=== PATIENT | female | born 1975 | race Caucasian/White ===

== ENCOUNTER → 2019-05-18 | Outpatient (CLI) | payer MEDICAID, SELFPAY ==
--- NOTE | 2019-05-18 10:12 | VDLE_ITS ---
Reason For Study: Edema RIGHT LEFT GSV is normal. GSV is normal. CFV is compressible, spontaneous, phasic, CFV is compressible, spontaneous, phasic, competent and demonstrates normal competent, and demonstrates normal augmentation. augmentation. FV is compressible, spontaneous, phasic, FV is compressible, spontaneous, phasic, competent and demonstrates normal competent and demonstrates normal augmentation. augmentation. POP V is compressible, spontaneous, phasic, POP V is compressible, spontaneous, phasic, competent and demonstrates normal competent and demonstrates normal augmentation. augmentation. T/P Trunk is compressible. T/P Trunk is compressible. PTV is compressible. PTV is compressible. RT PerV is compressible. LT PerV is compressible. Procedure Exam performed in department. Technically difficult study due to pt body habitus. A preliminary report was called and/or faxed to [facility]. Interpretation Summary Deep veins of the lower extremities are bilaterally patent and compressible segmentally. There is no evidence of deep vein thrombosis on either side. Valvular competence appears intact within the proximal deep venous systems bilaterally. The greater saphenous veins appear bilaterally patent and compressible segmentally. Ordering Physician: Arthur Marino Referring Physician: Arthur Marino Performed By: Isa Dent RVT
== END | disposition home or self-care (01) ==
PROVIDERS: Family Provider Family Medicine; PCP Family Medicine; Referring Provider Family Medicine; Visit Provider Family Medicine
DX: R60.9 Edema, unspecified (principal)
CPT/HCPCS: 93970

== ENCOUNTER → 2021-05-18 09:21 | Outpatient (CLI) | payer MEDICAID, SELFPAY ==
[2021-05-18 09:28] VITALS: BP 153/104; PULSE 77; RESP 18; TEMP 36.1; O2SAT 100
[2021-05-18 09:33] VITALS: BP 105/68
[2021-05-18] MEDS: Penicillin G Benzathine 2.4 MU/4 ML Syringe IM (09:48)
== END ==
PROVIDERS: PCP Family Medicine
DX: A53.0 Latent syphilis, unspecified as early or late (principal)
CPT/HCPCS: 96372

== ENCOUNTER 2022-01-28 12:18 | Outpatient (CLI) | payer MEDICAID, SELFPAY ==
[2022-01-28 12:42] LABS: D-Dimer Quantitative (DVT/PE) 0.49 FEU/ug/m (0.27-0.49)
== END 2022-01-28 23:59 | disposition home or self-care (01) ==
LOC: LABSPEC 12:21
PROVIDERS: PCP Family Medicine; Referring Provider Family Medicine; Visit Provider Family Medicine
DX: R07.9 Chest pain, unspecified (principal)
CPT/HCPCS: 85379

== ENCOUNTER → 2022-03-10 | Outpatient (CLI) | payer MEDICAID, SELFPAY ==
--- NOTE | 2022-03-10 09:19 | US_ITS ---
STUDY: ABDOMINAL ULTRASOUND - RIGHT UPPER QUADRANT REASON FOR VISIT: Female, 46 years old ELEVATED LIVER ENZYMES TECHNIQUE: Ultrasound evaluation of the right upper quadrant was performed with real-time and static garcia-scale imaging. TECHNICAL QUALITY: Adequate. COMPARISON: None. FINDINGS: Liver: The liver is enlarged and measures 21.1 cm. There is increased echogenicity consistent with fatty infiltration. The bile ducts are within normal limits. There is hepatic color flow. The direction of portal flow is hepatopetal. There is no demonstrated mass lesion. Gallbladder: The patient is status post cholecystectomy. Common Bile Duct (C.B.D.): The common bile duct measures 5 mm. Pancreas: There is nonvisualization of the pancreas due to overlying bowel gas. Right Kidney: Normal size of the right kidney. The right kidney measures 10.7 cm x 5.3 cm x 5.8 cm. Normal renal cortex. The right cortex measures 1.9 cm. There is no demonstrated renal mass or cyst. There is no right hydronephrosis. US/Abdomen Limited IMPRESSION: Hepatomegaly and diffuse fatty infiltration of the liver. Electronically Signed: Yusuf Simental MD at 10:01 EDT ,
--- NOTE | 2022-03-10 09:19 | US_ITS ---
STUDY: ABDOMINAL ULTRASOUND - ELASTOGRAPHY REASON FOR VISIT: Female, 46 years old. Elevated liver enzymes. TECHNIQUE: Liver stiffness measurements were obtained on a [employer] RS 85 ultrasound machine using a CA 1-7 probe following the SRU guidelines. 3 measurements were obtained using a 2-D-SWE method. The IQR/M was 31% suggesting a limited data set to patient''s body habitus.. TECHNICAL QUALITY: Adequate. COMPARISON: None. FINDINGS: Liver: Fatty infiltration of the liver. Hepatomegaly. Median liver stiffness measured 5.8 kPa. US/Elastography Parenchyma/Organ IMPRESSION: Liver stiffness measures 5.8 kPa compatible with F2-F3 (Mild to moderate liver fibrosis) Metavir score. Electronically Signed: Yusuf Simental MD at 10:29 EDT ,
== END | disposition home or self-care (01) ==
LOC: US 09:18
PROVIDERS: PCP Family Medicine; Visit Provider Physician Assistant
DX: K76.0 Fatty (change of) liver, not elsewhere classified (principal); R74.8 Abnormal levels of other serum enzymes
CPT/HCPCS: 76705; 76981

== ENCOUNTER → 2024-04-09 | Outpatient (CLI) | payer MEDICAID, SELFPAY | END | disposition home or self-care (01) | PROVIDERS: PCP Family Medicine; Referring Provider Physician Assistant Medical; Visit Provider Physician Assistant Medical | DX: R55 Syncope and collapse (principal) | CPT/HCPCS: 95819 ==

== ENCOUNTER 2024-07-09 12:07 | Emergency (ER) | payer MEDICAID, SELFPAY ==
[2024-07-09 12:09] VITALS: BP 146/108; PULSE 102; RESP 18; TEMP 36.2; O2SAT 94
[2024-07-09 12:11] VITALS: BMI 45.6
[2024-07-09 14:07] VITALS: BP 103/86; PULSE 82; RESP 18; O2SAT 98
--- NOTE | 2024-07-09 14:12 | EX.ED.DYSGE1 ---
HPI History of Present Illness Chief Complaint: Nausea/Vomiting/Diarrhea Informant: patient Narrative Narrative: 48-year-old female presenting to the emergency room chief complaint of vomiting diarrhea. Patient states that on Tuesday she went to see her HIV doctor through [facility] in [place]. She states that they ran some blood work because she was having vomiting and diarrhea and that her sodium was very low and all my blood work is off. She has the blood work on her phone which shows a normal white count hemoglobin and platelet count. Her sodium is 132 but her blood sugars greater than 400 so it would correct into the normal range. Chloride is concomitantly low. Her potassium was within normal limits. Her urinalysis was contaminated and urine culture demonstrated 10,000-40,000 colony-forming units of mixed gram-positive's moderate squamous cells negative nitrates. She notes continued vomiting diarrhea lower abdominal pain on the right radiating to the flank. She denies dysuria. She chronically has elevated transaminases. Her bilirubin was elevated but less than 2. She states that her urine was fluorescent orange. She was told that her doctor wanted a CT scan of her abdomen pelvis but the wait time was 5 hours show she declined returned home. She states her last episode of vomiting and diarrhea was this morning. No reported fevers. [facility] Medical History HIV (human immunodeficiency virus infection) Morbid obesity with body mass index of 40.0-49.9 Anxiety and depression Asthma Hypertension Home Medications ?Medication ?Instructions ?Recorded ?Last Taken ?Type Fluticasone 220 Mcg [Flovent 220 2 puff inhalation TID 07/20/13 Unknown History Mcg] nitrofurantoin 100 mg PO Q12 #10 CAPSULES 07/09/24 Unknown Rx monohydrate/macrocrystals 100 mg capsule ondansetron 4 mg disintegrating 4 mg PO Q6H PRN PRN Nausea #15 tabs 07/09/24 Unknown Rx tablet tizanidine 2 mg capsule 2 mg PO QHS 07/09/24 Unknown History Allergy/AdvReac Type Severity Reaction Status Date / Time Penicillins Allergy Rash Verified 07/09/24 12:08 Social History Smoking Status: Current some day smoker tobacco type: cigarettes ROS ROS ED Constitutional Constitutional ED: Denies chills, fever(s) or weight loss Eyes Eyes: Denies change in vision or diplopia ENT ENT ED: Denies ear pain, rhinorrhea or sore throat Cardiovascular Cardiovascular: Denies chest pain, orthopnea, palpitations or racing heartbeat Respiratory/Chest Respiratory/Chest: Denies cough, dyspnea or orthopnea Gastrointestinal Gastrointestinal: Reports abdominal pain, diarrhea, nausea and vomiting Genitourinary Genitourinary ED: Denies dysuria, hematuria or urinary frequency Musculoskeletal Musculoskeletal: Denies arthralgias or myalgias Integumentary Denies abscess or rash Neurologic Neurologic: Denies headache(s) or weakness Psychiatric Psychiatric: Denies anxiety, depression, suicidal ideation or suicidal thoughts Endocrine Endocrinology: Denies polydipsia, polyphagia or polyuria Allergic/Immunologic Allergic/Immunologic ED: Denies mouth swelling, tongue swelling or urticaria EXAM Physical Exam Const Vital Signs: 07/09/24 12:09 07/09/24 14:07 07/09/24 16:00 Temperature 97.1 F L Temperature Source Temporal Pulse Rate 102 H 82 Respiratory Rate 18 18 Blood Pressure 146/108 H 103/86 H 148/91 H Blood Pressure Mean 120 91 110 Pulse Ox 94 98 Oxygen Delivery Method Room Air Room Air Positive well nourished, well developed and obese General Appearance ED: well developed Nutritional Appearance: obese HEENT Reports normocephalic, head/scalp atraumatic and moist mucous membranes Eyes PERRL and EOMs intact bilaterally Neck no lymphadenopathy, supple and no JVD Resp normal respiratory effort and clear to auscultation bilaterally Cardio regular rate, regular rhythm and no murmurs Rate: tachycardic GI non-distended GI Narrative: Exam is limited secondary to body habitus Auscultation: normoactive bowel sounds Palpation: soft and tender RLQ and RUQ Back/Spine normal ROM Thoracic Spine / Upper Back: Negative for thoracic spinal tenderness Lumbar Spine / Lower Back: Negative for lumbar spinal tenderness Extremity normal to inspection General Extremety ED: Negative for edema General Extremity: Negative for edema Neuro oriented x3 and CN's II-XII intact bilaterally Sensorium / Orientation: alert Motor Exam: strength 5/5 throughout Psych mental status grossly normal Mood & Affect: Negative for depressed or tearful Skin no rashes or lesions noted and no wounds MDM MDM MDM Narrative Medical decision making narrative: Differential diagnosis includes but not limited to acute dehydration electrolyte abnormalities hyperglycemia dehydration metabolic acid-base disturbance viral syndrome colitis White count 9.3 hemoglobin is 13.9 platelet count of 152. Sodium is 134 with creatinine 0.94 BUN of 11 and anion gap of 7 CO2 of 27. Blood glucose is 313 AST and ALT are elevated at 166 and 213 alkaline phosphatase 136 normal lipase total bilirubin 1.[address] and direct bilirubin 0.31. CT of the abdomen pelvis was obtained with IV contrast. This does not show any significant inflammatory changes. Patient received IV fluids as well as Zofran. I believe the patient can be discharged home. She does not follow-up with primary care regarding hyperglycemia. History & Record Review Discussion w/independent historian: Patient Lab Data Attestation: I reviewed the patient's lab results. Labs: Laboratory Results - last 24 hr 07/09/24 07/09/24 14:35 16:00 WBC 9.3 RBC 4.61 Hgb 13.9 Hct 40.4 MCV 87.6 MCH 30.2 MCHC 34.4 RDW Std Deviation 38.7 RDW Coeff of Radha 12.2 Plt Count 152 MPV 10.2 Immature Gran % (Auto) 0.400 Neut % (Auto) 58.6 Lymph % (Auto) 33.4 Cotton % (Auto) 4.2 Eos % (Auto) 2.8 Baso % (Auto) 0.6 Absolute Neuts (auto) 5.5 Absolute Lymphs (auto) 3.11 Nucleated RBC % 0 Sodium 134 L Potassium 3.9 Chloride 100 Carbon Dioxide 27.0 Anion Gap 7 BUN 11 Creatinine 0.94 Estim Creat Clear Calc 110.71 Est GFR (MDRD) Af Amer 81 Est GFR (MDRD) Non-Af 67 BUN/Creatinine Ratio 11.7 Glucose 313 H Calcium 9.3 Total Bilirubin 1.30 H Direct Bilirubin 0.31 H AST 166 H ALT 213 H Alkaline Phosphatase 136 H Total Protein 7.5 Albumin 3.7 Globulin 3.8 Lipase 38 Urine Color Yellow Urine Clarity Sl. Cloudy Urine pH 5.0 Ur Specific [place] 1.025 Urine Protein 30 H Urine Glucose (UA) 1000 H Urine Ketones Negative Urine Occult Blood 25 H Urine Nitrite Negative Urine Bilirubin Negative Urine Urobilinogen Normal Ur Leukocyte Esterase 500 H Urine RBC 0 SEEN Urine WBC >100 SEEN Ur Squamous Epith Cells 25-50 SEEN Urine Bacteria 2+ Urine Mucus 2+ Radiography Diagnostic Testing: Clinical Impression(s) from Imaging Studies Abdomen/Pelvis CT 07/09/24 15:25 IMPRESSION: Significantly limited by patient size. Hepatosplenomegaly. No definite acute or significant abnormality seen. Electronically Signed: Juan Diego Ramos MD at 16:44 EDT , Discharge Plan Triage Chief Complaint: Nausea/Vomiting/Diarrhea ED Provider: Franki Jefferson Dx/Rx/DC Orders Clinical Impression: Vomiting and diarrhea, Abdominal pain Instructions: Abdominal Pain Prescriptions: New ondansetron 4 mg tablet,disintegrating 4 mg PO Q6H PRN PRN (Reason: Nausea) Qty: 15 0RF nitrofurantoin monohyd/m-cryst 100 mg capsule 100 mg PO Q12 Qty: 10 0RF No Action Fluticasone 220 Mcg [Flovent 220 Mcg] 1 INHALER inhaler 2 puff inhalation TID tizanidine 2 mg capsule 2 mg PO QHS Primary Care Provider: Arthur Marino Referrals: Arthur Marino MD [Primary Care Provider] - 3-5 Days Print Language: Uzbek Disposition Disposition: Home, Self Care
[2024-07-09] MEDS: 0.9% Normal Saline (1000mL) 1,000 ML 1000 ML IV ×2 (14:31→16:23)
[2024-07-09] MEDS: Ondansetron 4 MG/2 ML Vial IV (14:31)
[2024-07-09 14:47] LABS: Absolute Lymphocyte Count 3.11 X10^3/uL (0.83-4.51); Absolute Neutrophil Count 5.5 X10^3/uL (2.0-7.7); Basophil# 0.06 X10^3/uL; Basophil% 0.6 % (0-1); Eosinophil# 0.26 X10^3/uL; Eosinophils% 2.8 % (0-5); Hematocrit 40.4 % (37-47); Hemoglobin 13.9 g/dL (12.0-15.0); Lymphocyte # 3.11 X10^3/ul (0.83-4.51); Lymphocyte % 33.4 % (19-41); Mean Corp Hgb Conc 34.4 g/dL (32-36); Mean Corpuscular Hgb 30.2 pg (27.0-32.0); Mean Corpuscular Volume 87.6 fL (81-99); Mean Platelet Vol. 10.2 fl (6.2-12.0); Monocyte# 0.39 X10^3/uL; Monocyte% 4.2 % (0-10); NRBC Flagged by Analyzer 0 % (0-5); Neutrophil # 5.46 X10^3/uL (2.7-7.7); Neutrophil % 58.6 % (47-70); Platelet Count 152 K/mm3 (150-450); RBC Distribution Width CV 12.2 % (11.6-14.6); RBC Distribution Width SD 38.7 fl (35.1-43.9); Red Blood Count 4.61 M/mm3 (4.2-5.4); White Blood Count 9.3 K/mm3 (4.4-11.0)
[2024-07-09 15:05] LABS: AST(SGOT) 166 U/L (15-37); Alanine Aminotransfer ALT/SGPT 213 U/L (13-56); Albumin, Serum 3.7 g/dL (3.2-5.0); Alkaline Phosphatase 136 U/L (45-117); Anion Gap 7 (5-15); BUN 11 mg/dL (7-18); BUN/Creat Ratio 11.7 RATIO (10-20); Bilirubin, Direct 0.31 mg/dL (0.00-0.30); Calcium,Total 9.3 mg/dL (8.5-10.1); Chloride 100 mmol/L (98-107); Creatinine, Serum 0.94 mg/dL (0.55-1.02); EST Glomerular Filtration Rate 67 mL/min (>60); Est Glom Filt Rate - Afr Amer 81 mL/min (>60); Estimated Creatinine Clearance 110.71 ml/min; Globulin 3.8 g/dL (2.2-4.2); Glucose 313 mg/dL (74-106); Lipase 38 U/L (13-75); Potassium 3.9 mmol/L (3.5-5.1); Protein, Total 7.5 g/dL (6.4-8.2); Sodium Level 134 mmol/L (136-145)
--- NOTE | 2024-07-09 15:25 | CT_ITS ---
STUDY: CT ABDOMEN AND PELVIS WITH CONTRAST REASON FOR EXAM: Female, 48 years old. Right abdominal pain N/V/D RADIATION DOSAGE (If Supplied By Facility): CTDIvol = ( 15.41 ) mGy, DLP = ( 1441.09 ) mGycm TECHNIQUE: Transaxial images were obtained from the dome of the diaphragm to the symphysis pubis without oral contrast. IV 100mL [id number]-300 was administered. Sagittal and coronal images were reconstructed. Individualized dose optimization techniques were used for this CT. COMPARISON: 02/10/2011 FINDINGS: Significantly limited by patient size which causes artifact and decreases resolution. The visualized lung bases are unremarkable. The visualized portions of the heart are within normal limits. There is hepatomegaly with diffuse hepatic enlargement. There is fatty infiltration. There is non-visualization of the gallbladder, which may be secondary to either contraction or a prior cholecystectomy. There is moderate splenomegaly. Normal pancreas. Normal bilateral adrenal glands. Normal right kidney. Normal left kidney. Evaluation of the GI tract is limited by absence of oral contrast. Cannot exclude stomach wall thickening. No dilated loops of bowel or evidence for obstruction. Cannot exclude segmental thickening of the [place] of the small or large bowel. Cannot exclude enteritis or colitis. Appendix within normal limits. Normal abdominal aorta. Normal inferior vena cava. Normal retroperitoneum. Normal urinary bladder. There is absence of the uterus consistent with a prior hysterectomy. Normal abdominal wall. There are diffuse degenerative changes of the visualized lumbar spine. CT/Abdomen/Pelvis W IV Cont ONLY IMPRESSION: Significantly limited by patient size. Hepatosplenomegaly. No definite acute or significant abnormality seen. Electronically Signed: Juan Diego Ramos MD at 16:44 EDT ,
[2024-07-09 16:00] VITALS: BP 148/91
[2024-07-09 16:06] LABS: Red Blood Cells-Urine 0 SEEN /hpf (0-5)
[2024-07-09 16:18] LABS: Color, Urine Yellow (Yellow); Glucose, Dipstick 1000 mg/dl (Normal); Ketone-Dipstick Negative (Negative); Leukocyte Esterase-Dipstick 500 /ul (Negative); Nitrite-Dipstick Negative (Negative); Occult Blood-Urine 25 /ul (Negative); Protein-Dipstick 30 mg/dl (Negative); Specific Gravity, Urine 1.025 (1.002-1.030); Urine Bilirubin Dipstick Negative (Negative); Urine Clarity Sl. Cloudy (Clear); Urine Urobilinogen Normal (Normal)
[2024-07-09 16:34] LABS: Bacteria 2+ /hpf (None Seen); Squamous Epithelial Cells - UA 25-50 SEEN /hpf (5-10); White Blood Cells >100 SEEN /hpf (0-5)
[2024-07-09 16:35] LABS: Mucous, Urine 2+ /hpf (<or=2+)
[2024-07-09 17:25] VITALS: BP 133/84; PULSE 85; RESP 18; TEMP 36.7; O2SAT 98
== END 2024-07-09 17:27 | disposition home or self-care (01) ==
PROVIDERS: Emergency Provider Emergency Medicine; PCP Family Medicine; Visit Provider Emergency Medicine
DX: R11.2 Nausea with vomiting, unspecified (principal); Z21 Asymptomatic human immunodeficiency virus [HIV] infection status; R19.7 Diarrhea, unspecified; R10.31 Right lower quadrant pain; R74.8 Abnormal levels of other serum enzymes; R74.01 Elevation of levels of liver transaminase levels; R73.9 Hyperglycemia, unspecified; E66.9 Obesity, unspecified; J45.909 Unspecified asthma, uncomplicated; F17.210 Nicotine dependence, cigarettes, uncomplicated; Z88.0 Allergy status to penicillin
CPT/HCPCS: 74177; 80048; 80076; 81001; 83690; 85025; 96361; 96374; 99283; J7030; Q9967; A4216; J2405